=== PATIENT | female | born 1955 | race Caucasian/White ===

== ENCOUNTER 2019-09-23 08:46 | Outpatient (CLI) | payer BC, SELFPAY ==
--- NOTE | ~2019-09-23 | US_ITS ---
US right upper quadrant INDICATION: Right upper quadrant pain. Nausea and vomiting. PROCEDURE: Realtime right upper abdominal ultrasound. COMPARISON: No prior studies for comparison. FINDINGS: The pancreas is normal without focal mass or pancreatic ductal dilation. Liver echotexture is normal without focal mass or intrahepatic biliary dilatation. There is normal directional flow i n the portal vein. There are gallstones. There is mild intrahepatic biliary dilatation. Common bile duct measures mm. N o sonographic Guzman's sign. IMPRESSION: 1: Cholelithiasis with mild intrahepatic biliary dilatation. Consider correlation with nuclear hepato biliary scan if there is concern for cholecystitis. Reviewed, dictated and finalized at location B. [employer]PERVISOR IMPRESSION: 1: Cholelithiasis with mild intrahepatic biliary dilatation. Consider correlati on with nuclear hepatobiliary scan if there is concern for cholecystitis.
== END 2019-09-23 08:47 | disposition home or self-care (01) ==
LOC: ANHIMG 08:49
PROVIDERS: PCP Family Medicine; Visit Provider Physician Assistant
DX: R10.11 Right upper quadrant pain (principal); K80.20 Calculus of gallbladder without cholecystitis without obstruction
CPT/HCPCS: 76705

== ENCOUNTER 2020-03-31 08:20 | Outpatient (CLI) | payer BC, SELFPAY ==
--- NOTE | ~2020-03-31 | MM_ITS ---
EXAMINATION: MM screening [facility] BI w nay HISTORY: Screening TECHNIQUE: Craniocaudal and mediolateral oblique 3-D tomosynthesis images were obtained and synthetic 2-D images were generated. CAD analysis was submitted and interpreted. COMPARISON: 03/30/2018 BREAST PARENCHYMAL COMPOSITION: There are scattered areas of fibroglandular density. FINDINGS: There is no evidence of suspicious mass, calcification, or architectural distortion to sugg est malignancy in either breast. There has been no suspicious interval change. IMPRESSION: 1. No mammographic evidence of malignancy. 2. Recommend routine screening mammography in one year. BI-RADS Category 1: Negative Reviewed, dictated and finalized at location A.
--- NOTE | ~2020-03-31 | CT_ITS ---
EXAMINATION: CT lung screening DATE: 03/31/2020 09:06 INDICATION: Personal history of nicotine dependence, prior smoker with 30 pack year history TECHNIQUE: Computed tomography (CT) of the chest was performed without intravenous contrast. The dose -length product (DLP) was 63.00 mGy-cm. Automated exposure control and iterative reconstruction techn ique were employed. COMPARISON: None FINDINGS: There is a 3 mm nodule of the left lower lobe on image 60. Mild emphysema is noted. The taya gs are free of focal airspace opacities. There is no pleural effusion or pneumothorax. No pathologica lly enlarged thoracic lymph nodes are identified. The heart size is normal. There is moderate to steven re thoracic spondylosis. IMPRESSION: 1. Lung-RADS category 2: Benign appearance or behavior. Continue annual screening with noncontrast lo w-dose chest CT in 12 months. Reviewed, dictated and finalized at location B. IMPRESSION: 1. Lung-RADS category 2: Benign appearance or behavior. Continue annual screeni ng with noncontrast low-dose chest CT in 12 months.
== END 2020-03-31 08:21 | disposition home or self-care (01) ==
LOC: ANHIMG 08:21
PROVIDERS: PCP Family Medicine; Visit Provider Physician Assistant
DX: Z12.31 Encounter for screening mammogram for malignant neoplasm of breast (principal); Z12.2 Encounter for screening for malignant neoplasm of respiratory organs; Z87.891 Personal history of nicotine dependence
CPT/HCPCS: 77063; 77067; G0297

== ENCOUNTER 2021-04-02 09:57 | Outpatient (CLI) | payer MEDICARE, SELFPAY ==
--- NOTE | ~2021-04-02 | CT_ITS ---
EXAMINATION: CT lung screening DATE: 04/02/2021 10:22 INDICATION: Personal history of nicotine dependence, prior smoker with 45 pack year history TECHNIQUE: Computed tomography (CT) of the chest was performed without intravenous contrast. The dose -length product (DLP) was 74.77 mGy-cm. Automated exposure control and iterative reconstruction techn Cas[place] were employed. COMPARISON: 03/31/2020 FINDINGS: There is mild emphysema. There is a stable 3 mm nodule of the left lower lobe. No new pulmo nary nodules are identified. The lungs are free of acute opacities. There is no pleural effusion or p neumothorax. There is severe thoracic spondylosis. IMPRESSION: 1. Lung-RADS category 2: Benign appearance or behavior. Continue annual screening with noncontrast lo w-dose chest CT in 12 months. Reviewed, dictated and finalized at location B. IMPRESSION: 1. Lung-RADS category 2: Benign appearance or behavior. Continue annual screeni ng with noncontrast low-dose chest CT in 12 months.
== END 2021-04-02 09:58 | disposition home or self-care (01) ==
LOC: ANHIMG 10:00
PROVIDERS: PCP Family Medicine; Visit Provider Physician Assistant
DX: Z12.2 Encounter for screening for malignant neoplasm of respiratory organs (principal); Z87.891 Personal history of nicotine dependence
CPT/HCPCS: 71271

== ENCOUNTER 2021-10-28 15:23 | Outpatient (CLI) | payer MEDICARE, SELFPAY ==
--- NOTE | ~2021-10-28 | MM_ITS ---
EXAMINATION: MM screening [facility] BI w nay HISTORY: Screening TECHNIQUE: Craniocaudal and mediolateral oblique 3-D tomosynthesis images were obtained and synthetic 2-D images were generated. CAD analysis was submitted and interpreted. COMPARISON: Comparison to multiple prior studies sequentially, with oldest reviewed study dated 01/2018. BREAST PARENCHYMAL COMPOSITION: There are scattered areas of fibroglandular density. FINDINGS: There is no evidence of suspicious mass, calcification, or architectural distortion to sugg est malignancy in either breast. There has been no suspicious interval change. IMPRESSION: 1. No mammographic evidence of malignancy. 2. Recommend routine screening mammography in one year. BI-RADS Category 1: Negative Reviewed, dictated and finalized at location A.
== END 2021-10-28 15:24 | disposition home or self-care (01) ==
LOC: ANHIMG 15:25
PROVIDERS: PCP Family Medicine; Visit Provider Physician Assistant
DX: Z12.31 Encounter for screening mammogram for malignant neoplasm of breast (principal)
CPT/HCPCS: 77063; 77067

== ENCOUNTER 2022-01-20 17:02 | Outpatient (CLI) | payer MEDICARE, SELFPAY ==
--- NOTE | ~2022-01-20 | DEXA_ITS ---
Bone Density Report Name: CRUZ BENNETT Age: 66 Sex: Female Ethnicity: White Date of : 1955 Indication: postmenopausal; screening for osteoporosis; height loss; asthma or emphysema; hysterectomy; Referring Provider: NELL REARDON Study: Bone densitometry was performed. Exam Date: January 20, 2022 Accession number: [id number] Bone Density: Region BMD T-score Z-score Classification AP Spine(L1-L4) 1.036 -0.1 1.7 Normal Femoral Neck (Left) 0.634 -1.9 -0.4 Osteopenia Total Hip (Left) 0.736 -1.7 -0.4 Osteopenia World Health Organization criteria for BMD impression classify patients as: Normal (T-score at or above -1.0), Osteopenia (T-score between -1.0 and -2.5), or Osteoporosis (T-score at or below -2.5). 10-year Fracture Risk(1): Major Osteoporotic Fracture 11% Hip Fracture 1.6% Reported Risk Factors: [place] (), Neck BMD=0.634, BMI=27.2 (1) FRAX(R) Version 3.08. Fracture probability calculated for an untreated patient. Fracture probability may be lower if the patient has received treatment. Clinical Information Provided by Patient: Has used the following medications: Vitamin D, Calcium Has the following medical conditions: Asthma or Emphysema, Hysterectomy Patient maximum height was 63 Menopause Age: 50 Does not regularly consume dairy products Drinks caffeinated beverages Onset of menses at age 16 Number of children 1 Impression: The patient has low bone mass, based on the Left Femoral Neck T-score. The patient has an estimated ten-year risk of hip fracture of 1.6% and an estimated ten-year risk of major fracture of 11%, based on the WHO FRAX algorithm. Discussion: BONE DENSITY IS LOW AT ONE OR MORE SKELETAL SITES. This patient's lowest T-score is low at one or more skeletal sites. It meets the World Health Organization's (WHO) criteria for ?low bone mass? (T-score between -1.0 and -2.5). The patient's 10-year risk of fracture as calculated by FRAX is less than the threshold where pharmacological therapy is recommended by the National Osteoporosis Foundation (NOF). However, all treatment decisions require clinical judgment and consideration of individual patient factors, including patient preferences, comorbidities, previous drug use, risk factors not captured in the FRAX model (e.g., frailty, falls, vitamin D deficiency, increased bone turnover, interval significant decline in bone density) and possible under or overestimation of fracture risk by FRAX. The patient should follow a healthful lifestyle (good nutrition with adequate calcium and vitamin D, and appropriate weight-bearing exercise). Follow-Up: Consider repeating this study in 2 to 3 years to reassess this patient's status, or sooner if there is some new clinical indication. Reported by: PAYTON on 01/20/2022 5:19:00 PM.
== END 2022-01-20 17:03 | disposition home or self-care (01) ==
PROVIDERS: PCP Family Medicine; Visit Provider Physician Assistant
DX: Z78.0 Asymptomatic menopausal state (principal)
CPT/HCPCS: 77080

== ENCOUNTER 2022-04-04 13:22 | Outpatient (CLI) | payer MEDICARE, SELFPAY ==
--- NOTE | ~2022-04-04 | CT_ITS ---
EXAMINATION:CT lung screening DATE: 04/04/2022 13:38 INDICATION: Tobacco use. Smoker who quit 4 years ago with 45 pack year history. TECHNIQUE: Computed tomography (CT) of the chest was performed without intravenous contrast. Automate d exposure control and iterative reconstruction technique were employed. The dose-length product (DLP ) was 66.76 mGy-cm. COMPARISON: Chest CT 04/02/2021 FINDINGS: There is mild emphysema. There is mild atelectasis bilaterally. Again seen is a 3 mm nodule in left lower lobe. There is mild scarring at the lung apices. No pleural effusion. The heart size i s normal. No pericardial effusion. There is fat stranding in right axilla which may be inflammation o r edema. There is severe cervical and thoracic spondylosis. IMPRESSION: 1. Lung-RADS category 2: Benign appearance or behavior. Continue annual screening with noncontrast lo w-dose chest CT in 12 months. Reviewed, dictated and finalized at location A. IMPRESSION: 1. Lung-RADS category 2: Benign appearance or behavior. Continue annual screeni ng with noncontrast low-dose chest CT in 12 months.
== END 2022-04-04 13:23 | disposition home or self-care (01) ==
PROVIDERS: PCP Family Medicine; Visit Provider Physician Assistant
DX: Z12.2 Encounter for screening for malignant neoplasm of respiratory organs (principal); Z87.891 Personal history of nicotine dependence
CPT/HCPCS: 71271

== ENCOUNTER 2022-10-20 00:11 | Day surgery (SDC) | payer MEDICARE, SELFPAY ==
[2022-10-10 13:57] VITALS: BMI 24.5
--- NOTE | 2022-10-19 14:04 | PM.HPGS ---
History of Present Illness History of Present Illness Consent: Risks, benefits, and alternatives have been discussed and questions answered. Patient agrees to proceed with procedure. Chief complaint: neoplasm screening Narrative: Daija Reed is a 66 year old female referred for colon cancer screening. Her last colonoscopy was 14 years ago. she recently performed a Cologuard test that was positive. Review of Systems Review of Systems: All systems reviewed & are unremarkable except as noted in HPI and below PMFSH Past Medical History Medical History COPD (chronic obstructive pulmonary disease) Essential hypertension Osteoarthritis RUQ abdominal pain Surgical History Surgical History History of History of hysterectomy Hx of removal of cyst removed from ovary in her 20s S/P total hip arthroplasty Right Family History Family History Sibling Family history of multiple sclerosis Father Hypertension Family history of cardiovascular disease Grandparent Tuberculosis Diabetes mellitus Social History Social History Social History: Smoking packs per day: 1.5 Smoking cigarettes per day: 30.0 Years smoked: 30 Smoking pack-years: 45.00 Smoking status: Former smoker Tobacco type: cigarettes Second hand tobacco smoke exposure: Yes Smoking end date: 07/24/17 Alcohol intake: never Substance use: never Substance use type: does not use Living arrangements: alone Occupation/Education: occupation Gender identity (if verbalized by the patient): Female Sexual Orientation (if Verbalized by the Patient): Straight or Heterosexual Spiritual care concerns: No Meds Home Medications and Allergies Home Medications Medication Instructions Recorded Confirmed Type albuterol sulfate 90 mcg/actuation 1 inh inhalation Q4H PRN shortness 09/07/22 10/20/22 Rx aerosol inhaler of breath or wheezing #8.5 grams lisinopril 10 mg tablet 10 mg PO DAILY #90 tabs 09/07/22 10/20/22 Rx Allergies Allergy/AdvReac Type Severity Reaction Status Date / Time codeine Allergy Mild N/V Verified 10/20/22 06:33 amoxicillin Allergy Unknown Vomiting Verified 10/20/22 06:33 Exam Const: General: alert Orientation/consciousness: patient oriented x3 Resp: Auscultation: clear to auscultation bilaterally Cardio: Rhythm: regular rhythm GI: GI Palp: Yes Soft to palpation and No Tenderness to palpation present (GI) Neuro: General: patient oriented x3 Assessment and Plan Assessment and plan (1) Screening for colon cancer: Code(s): Z12.11 - Encounter for screening for malignant neoplasm of colon Status: Acute Assessment and Plan: Colonoscopy with possible biopsy or polypectomy or cautery or injection of substances.
[2022-10-20 06:34] VITALS: BP 121/67; PULSE 90; RESP 16; TEMP 36.2; O2SAT 96
[2022-10-20] MEDS: LACTATED RINGERS 1,000 ML 150 ML IV CONT (06:39)
--- NOTE | 2022-10-20 07:16 | WPDANESEPPF ---
Anes - Initial Pre Proc Eval Procedure: Operation Date: 10/20/22 08:00 Proposed Procedures p Screening Colonoscopy - Homero Quinonez MD Date/Time: 10/20/22 07:16 Surgeon: Homero Quinonez MD Pre Op Diagnosis: neoplasm screening Patient Data Age: 66 Gender: F Height: 1.55 m Weight: 56.9 kg Last Vital Signs Temp 36.2 C L 10/20/22 06:34 Pulse 90 10/20/22 06:34 Resp 16 10/20/22 06:34 BP 121/67 10/20/22 06:34 Pulse Ox 96 10/20/22 06:34 O2 Del Method Room Air 10/20/22 06:34 Allergies Allergy/AdvReac Type Severity Reaction Status Date / Time codeine Allergy Mild N/V Verified 10/20/22 06:33 amoxicillin Allergy Unknown Vomiting Verified 10/20/22 06:33 Home Medications Medication Instructions Recorded Confirmed Type albuterol sulfate 90 mcg/actuation 1 inh inhalation Q4H PRN shortness 09/07/22 10/20/22 Rx aerosol inhaler of breath or wheezing #8.5 grams lisinopril 10 mg tablet 10 mg PO DAILY #90 tabs 09/07/22 10/20/22 Rx Patient hx anesthesia problems: none Family hx anesthesia problems: none Results Review: All pre-operative results and documents have been reviewed as part of the pre-operative evaluation. [facility] Past Medical History Medical History COPD (chronic obstructive pulmonary disease) Essential hypertension Osteoarthritis RUQ abdominal pain Surgical History Surgical History History of History of hysterectomy Hx of removal of cyst removed from ovary in her 20s S/P total hip arthroplasty Right Family History Family History Sibling Family history of multiple sclerosis Father Hypertension Family history of cardiovascular disease Grandparent Tuberculosis Diabetes mellitus Social History Social History Social History: Smoking packs per day: 1.5 Smoking cigarettes per day: 30.0 Years smoked: 30 Smoking pack-years: 45.00 Smoking status: Former smoker Tobacco type: cigarettes Second hand tobacco smoke exposure: Yes Smoking end date: 07/24/17 Alcohol intake: never Substance use: never Substance use type: does not use Living arrangements: alone Occupation/Education: occupation Gender identity (if verbalized by the patient): Female Sexual Orientation (if Verbalized by the Patient): Straight or Heterosexual Spiritual care concerns: No Anes - Eval Final PreProcedure Day of Procedure 10/20/22 07:16 Patient weight: normal Heart: regular rate and rhythm Lungs: clear to auscultation Airway: Mallampati scale class II Neurological: alert and oriented Last oral intake: >/= 8 hours ASA classification: III Emergent: no Anesthetic plan: proceed Anesthesia type and monitoring: general GIVS and standard monitoring Results Review: All pre-operative results and documents have been reviewed as part of the pre-operative evaluation. Informed Consent: The patient's anesthetic plan and its attendant risks and benefits were discussed with the patient/family/POA. Questions were solicited and answers provided to the satisfaction of the patient/family/POA.
[2022-10-20 08:17] VITALS: BP 110/75; PULSE 80; RESP 20; O2SAT 100
[2022-10-20 08:27] VITALS: BP 117/75; PULSE 74; RESP 18; O2SAT 99
[2022-10-20 08:37] VITALS: BP 115/77; PULSE 72; RESP 20; O2SAT 99
== END 2022-10-20 08:42 | disposition home or self-care (01) ==
PROVIDERS: PCP Family Medicine; Visit Provider Internal Medicine Gastroenterology
PROC: 0DJD8ZZ Inspection of Lower Intestinal Tract, Via Natural or Artificial Opening Endoscopic (ICD-10-PCS; CPT 45378; principal; 2022-10-20 08:00)
DX: Z12.11 Encounter for screening for malignant neoplasm of colon (principal); D12.5 Benign neoplasm of sigmoid colon; K57.30 Diverticulosis of large intestine without perforation or abscess without bleeding; R19.5 Other fecal abnormalities; J44.9 Chronic obstructive pulmonary disease, unspecified; I10 Essential (primary) hypertension; Z79.51 Long term (current) use of inhaled steroids; Z87.891 Personal history of nicotine dependence
CPT/HCPCS: 45385; 88305; J2704; J7120

== ENCOUNTER 2023-02-20 15:22 | Outpatient (CLI) | payer MEDICARE, SELFPAY ==
--- NOTE | ~2023-02-20 | MM_ITS ---
EXAMINATION: MM screening kurt BI w nay HISTORY: Screening mammogram TECHNIQUE: Craniocaudal and mediolateral oblique 3-D tomosynthesis images were obtained and synthetic 2-D images were generated. CAD analysis was submitted and interpreted. COMPARISON: October 28, 2021, March 31, 2020, March 30, 2018 bilateral screening mammogram examina tions BREAST PARENCHYMAL COMPOSITION: There are scattered areas of fibroglandular density. FINDINGS: Stable benign-appearing posterior upper outer quadrant lymph nodes. There is no evidence of suspicious mass, calcification, or architectural distortion to suggest malignancy in either breast. There has been no suspicious interval change. IMPRESSION: 1. No mammographic evidence of malignancy. 2. Recommend routine screening mammography in one year. BI-RADS Category 2: Benign finding(s). Reviewed, dictated and finalized at location A.
== END 2023-02-20 15:23 | disposition home or self-care (01) ==
LOC: ANHIMG 15:27
PROVIDERS: PCP Family Medicine; Visit Provider Physician Assistant
DX: Z12.31 Encounter for screening mammogram for malignant neoplasm of breast (principal)
CPT/HCPCS: 77063; 77067

== ENCOUNTER 2023-04-08 09:56 | Outpatient (CLI) | payer MEDICARE, SELFPAY ==
--- NOTE | ~2023-04-08 | CT_ITS ---
CT Scan of the Chest without Contrast: Clinical Indication: Lung cancer screening, personal history of nicotine dependence Technique: Contiguous sections were acquired throughout the chest without intravenous contrast. Dose reduction technique was used on this scan by utilizing automated exposure control and iterative recon struction technique. The dose-length product (DLP) was 59.57 mGy-cm. COMPARISON: 04/04/2022, 04/02/2021 Findings: There is no evidence of any significant mediastinal, hilar or axillary lymphadenopathy. There are ath erosclerotic calcifications of the aorta. There is no evidence of pleural or pericardial effusion. Stable 3 mm left lower lobe pulmonary nodule noted. Images through the upper abdomen reveal no abnormalities. There is multilevel degenerative disc narro wing of the thoracic spine. Impression: Lung RADS 2: Benign appearance. 12 month follow-up screening CT advised. Reviewed, dictated and finalized at [facility]. Impression: Lung RADS 2: Benign appearance. 12 month follow-up screening CT advised.
== END 2023-04-08 09:57 | disposition home or self-care (01) ==
PROVIDERS: PCP Family Medicine; Visit Provider Physician Assistant
DX: Z12.2 Encounter for screening for malignant neoplasm of respiratory organs (principal); Z87.891 Personal history of nicotine dependence
CPT/HCPCS: 71271

== ENCOUNTER 2023-12-12 07:52 | Emergency (ER) | payer MEDICARE, SELFPAY ==
[2023-12-12] VITALS (7 sets, daily range): BP systolic 118–165; BP diastolic 73–109; PULSE 91–119; RESP 18–20; TEMP 37.2; O2SAT 93–98
--- NOTE | ~2023-12-12 | CT_ITS ---
Non-contrast Head CT History: Status post fall Technique: Axial non-contrast imaging of the brain was performed. Dose reduction technique was used on this scan by utilizing automated exposure control and iterative reconstruction technique. The dose -length product (DLP) was 605.33 mGy-cm. Findings: There is no evidence of intracranial hemorrhage, mass lesion, or acute infarct. Brain par enchyma appears normal. The ventricles and subarachnoid spaces are normal in size. The calvarium ap pears normal. The visualized paranasal sinuses and mastoid air cells are clear. Impression: No significant abnormality seen. Reviewed, dictated and finalized at location . Impression: No significant abnormality seen.
--- NOTE | ~2023-12-12 | CT_ITS ---
Noncontrast CT scan of the cervical spine Technique: Multiple contiguous axial [address] images of the cervical spine were obtained and rec onstructed in 2D sagittal and coronal planes on the acquisition scanner. Dose reduction technique was used on this scan by utilizing automated exposure control, adjustment of the mA and/or kV according to patient size. The dose-length product (DLP) was 205.66 mGy-cm. Clinical History: Pain Findings: No acute fracture seen. There is 3 mm anterolisthesis of C4 over C5. There is advanced dege nerative disc narrowing at C5-C6 and C6-C7. There is scattered facet joint degenerative changes. Prob able mild bilateral neural foraminal narrowing at C4-C5. There is left neural foraminal narrowing C5- C6. No prevertebral soft tissue swelling. Impression: No fracture. 3 mm anterolisthesis of C4 over C5. Degenerative change, as detailed above. Reviewed, dictated and finalized at [facility]. Impression: No fracture. 3 mm anterolisthesis of C4 over C5. Degenerative change, as detailed above.
--- NOTE | ~2023-12-12 | CT_ITS ---
EXAMINATION: CTA chest PE protocol DATE: 12/12/2023 09:52 INDICATION: Dizziness, tachycardia. Fall. TECHNIQUE: Computed tomography angiography (CTA) of the chest was performed with 100 mL Omnipaque-350 intravenous contrast timed to evaluate the pulmonary arteries. Coronal maximum intensity projection 3D-reconstructions were created by the technologist. Automated exposure control and iterative reconst ruction technique were employed. Exam dose: 186.00 mGy-cm total exam DLP. COMPARISON: 04/08/2023 CT lung screening FINDINGS: There is moderate contrast opacification of pulmonary arteries and no evidence of pulmonary embolism. There is thoracic aortic calcification but no thoracic aortic aneurysm or dissection. No hilar or mediastinal mass lesion or lymphadenopathy. Normal heart size. No pericardial or pleural effusion. Mild bilateral lower lobe dependent atelectasis. There is mild emphysematous change of the lungs. Normal morphology of the adrenal glands. Included upper abdominal structures are unremarkable. Severe degenerative disc disease at C5-6 and C6-7. Multilevel prominent degenerative disc disease of the thoracic and included upper lumbar spine. Anterolateral right third rib fracture may be recent. Possible recent angulated very anterior right f ourth and seventh rib fractures. Recommend clinical correlation with point tenderness at these locati ons. IMPRESSION: No evidence of pulmonary embolism Mild emphysematous changes Bilateral dependent lower lobe atelectasis Cannot exclude recent right rib fractures; no pneumothorax or pleural effusion Reviewed, dictated and finalized at Location A. Reviewed, dictated and finalized at location B.
--- NOTE | 2023-12-12 08:02 | ECG_ITS ---
SEE SCANNED COPY FOR CONFIRMED REPORT MTDD
--- NOTE | 2023-12-12 08:11 | ED.SYNCOPE ---
HPI - Syncope General Chief Complaint: Altered Mental Status Stated Complaint: unconscious @ bike trail Time Seen by Provider: 12/12/23 08:02 History of Present Illness HPI narrative: Patient who has intermittent episodes of vertigo presents here after she had another episode of vertigo, got so dizzy that she actually fell and that was last thing she remembers. Denies any concerns or complaints right now other than a mild headache. Related Data Home Medications Medication Instructions Recorded Confirmed fluticasone fur. 100 mcg-umeclid 1 inh inhalation DAILY 11/02/23 11/02/23 62.5 mcg-vilant 25 mcg inhalat.powder (Trelegy Ellipta) Allergies Allergy/AdvReac Type Severity Reaction Status Date / Time codeine Allergy Mild N/V Verified 12/12/23 07:58 amoxicillin Allergy Unknown Vomiting Verified 12/12/23 07:58 Review of Systems Review of Systems: All systems reviewed & are unremarkable except as noted in HPI and below PMFSH Past Medical History Medical History COPD (chronic obstructive pulmonary disease) Essential hypertension History of colon polyps Osteoarthritis RUQ abdominal pain Surgical History Surgical History History of History of hysterectomy Hx of removal of cyst removed from ovary in her 20s S/P total hip arthroplasty Right Family History Family History Sibling Family history of multiple sclerosis Father Hypertension Family history of cardiovascular disease Grandparent Tuberculosis Diabetes mellitus Social History Social History Social History: Smoking packs per day: 1.5 Smoking cigarettes per day: 30.0 Years smoked: 30 Smoking pack-years: 45.00 Smoking status: Former smoker Tobacco type: cigarettes Second hand tobacco smoke exposure: Yes Smoking end date: 07/24/17 Alcohol intake: never Substance use: never Substance use type: does not use Living arrangements: alone Occupation/Education: occupation Gender identity (if verbalized by the patient): Female Sexual Orientation (if Verbalized by the Patient): Straight or Heterosexual Spiritual care concerns: No Exam Narrative: EXAMINATION OF ORGAN SYSTEMS/BODY AREAS: Constitutional: Vital signs per nursing GENERAL:[No acute distress, non-toxic appearing.] HEAD: Normal with no signs of head trauma. EYES: EOMI, conjunctiva normal ENT: Hearing grossly intact LUNGS: Nonlabored breathing. HEART: [Regular rate and rhythm] ABD: [Soft], [nontender to palpation] EXT: Normal range of motion SKIN: [No rashes or lesions.] NEURO: [Alert and oriented x 3. No gross focal sensory or strength deficits.] Speaking with clear speech, face is symmetric. PSYCH: Normal affect Course Vital Signs Vital signs: Vital Signs Temperature 99 F 12/12/23 07:51 Pulse Rate 119 H 12/12/23 07:51 Respiratory Rate 18 12/12/23 07:51 Blood Pressure 165/109 H 12/12/23 07:51 Pulse Oximetry 94 12/12/23 07:51 Oxygen Delivery Room Air 12/12/23 07:51 Temperature 99 F 12/12/23 07:51 Pulse Rate 93 12/12/23 10:39 Respiratory Rate 20 12/12/23 10:39 Blood Pressure 122/79 12/12/23 10:39 Pulse Oximetry 96 12/12/23 10:39 Oxygen Delivery Room Air 12/12/23 08:04 MDM - Syncope MDM Narrative Medical decision making narrative: Patient presents after having episode of loss of consciousness, she states that she had felt severe vertigo, where she felt like she was on a ship and everything moving around her, got very nauseous, and then try to move to the grass so she would have a gentle fall but woke up to EMS. She has had episodes like this in the past and she generally tries to move son were softer and has never actually hit her head this lua
[2023-12-12 08:18] LABS: Basophils Absolute Auto 0.1 K/mm3 (0.0-0.1); Basophils Percent Auto 1.4 % (0.2-1.2); Eosinophils Absolute Auto 0.5 K/mm3 (0-0.3); Eosinophils Percent Auto 6.5 % (0-4.4); Hematocrit 45.6 % (37.0-47.0); Hemoglobin 14.6 g/dL (12.0-15.0); Immature Granulocyte Absolute 0.06 K/mm3 (0.00-0.031); Immature Granulocyte Percent A 0.7 % (0-0.5); Lymphocytes Absolute Auto 2.89 K/mm3 (0.9-3.2); Lymphocytes Percent Auto 34.5 % (18.3-44.2); Mean Corpuscular Hemoglobin 29.1 pg (26-34); Mean Corpuscular Volume 90.8 fl (80-100); Mean Platelet Volume 8.8 fl (7.4-10.4); Monocytes Absolute Auto 0.6 K/mm3 (0.1-0.6); Monocytes Percent Auto 7.2 % (2.6-8.5); Neutrophils Absolute Auto 4.2 K/mm3 (1.3-6.7); Neutrophils Percent Auto 49.7 % (45.5-73.1); Platelet Count Result 501 k/mm3 (150-375); Red Blood Count 5.02 M/mm3 (4.2-5.4); Red Cell Distribution Width 14.2 % (11.5-14.5); White Blood Count 8.4 K/mm3 (4.5-10.0)
[2023-12-12 08:25] LABS: Alanine Aminotransferase 12 U/L (6-35); Albumin Level 4.5 g/dL (3.5-5.1); Alkaline Phosphatase 95 U/L (38-126); Anion Gap 7 mmol/L (4-12); Aspartate Amino Transferase 22 U/L (14-36); Bilirubin,Total 0.4 mg/dL (0.2-1.3); Blood Urea Nitrogen 18 mg/dL (7-17); Calcium 8.9 mg/dL (8.4-10.2); Carbon Dioxide 22 mmol/L (22-30); Chloride 108 mmol/L (98-107); Estimated CRCL calculation 58 ml/min; Estimated Glomerular Filt Rate > 60; Glucose 117 mg/dL (65-110); Potassium 3.9 mmol/L (3.4-5.0); Sodium 137 mmol/L (137-145)
[2023-12-12 08:35] LABS: Troponin I < 0.012 ng/mL (0.000-0.034)
[2023-12-12 09:29] LABS: D Dimer 0.75 ug/mL (<0.48)
== END 2023-12-12 10:40 | disposition home or self-care (01) ==
PROVIDERS: Emergency Provider Emergency Medicine; PCP Family Medicine
DX: S22.31XA Fracture of one rib, right side, initial encounter for closed fracture (principal); R42 Dizziness and giddiness; S06.0X0A Concussion without loss of consciousness, initial encounter; T14.90XA Injury, unspecified, initial encounter; I10 Essential (primary) hypertension; J44.9 Chronic obstructive pulmonary disease, unspecified; Z87.891 Personal history of nicotine dependence
CPT/HCPCS: 36415; 70450; 71275; 72125; 80053; 84484; 85025; 85380; 93005; 99284; Q9967

== ENCOUNTER 2024-05-27 14:08 | Outpatient (CLI) | payer MEDICARE, SELFPAY ==
--- NOTE | ~2024-05-27 | MM_ITS ---
EXAMINATION: MM screening kurt BI w nay HISTORY: Screening TECHNIQUE: Craniocaudal and mediolateral oblique 3-D tomosynthesis images were obtained and synthetic 2-D images were generated. CAD analysis was submitted and interpreted. COMPARISON: Comparison to multiple prior studies sequentially, with oldest reviewed study dated 01/2018. BREAST PARENCHYMAL COMPOSITION: Not dense: There are scattered areas of fibroglandular density. FINDINGS: There is no evidence of suspicious mass, calcification, or architectural distortion to sugg est malignancy in either breast. There has been no suspicious interval change. IMPRESSION: 1. No mammographic evidence of malignancy. 2. Recommend routine screening mammography in one year. BI-RADS Category 1: Negative Reviewed, dictated and finalized at location B. TREATMENT OFFSIDER
== END 2024-05-27 14:09 | disposition home or self-care (01) ==
LOC: ANHIMG 14:09
PROVIDERS: PCP Family Medicine; Visit Provider Physician Assistant
DX: Z12.31 Encounter for screening mammogram for malignant neoplasm of breast (principal)
CPT/HCPCS: 77063; 77067

== ENCOUNTER 2024-06-21 08:06 | Emergency (ER) | payer OTHER, MEDICARE, SELFPAY ==
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
[2024-06-21 08:09] VITALS: TEMP 36.6
[2024-06-21 08:13] VITALS: BP 166/81; PULSE 89; RESP 16; TEMP 36.6; O2SAT 100
[2024-06-21] MEDS: methocarbamoL 750 MG TABLET 1500 MG PO (08:27)
[2024-06-21] MEDS: ACETAMINOPHEN 500 MG TABLET 1000 MG PO (08:28)
[2024-06-21] MEDS: KETOROLAC 15 MG/ML VIAL (*BKC) IV PUSH (08:28)
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
[2024-06-21 09:34] VITALS: BP 142/80; PULSE 78; RESP 16; TEMP 36.6; O2SAT 98
--- NOTE | 2024-06-21 09:34 | PC.NURSE ---
RT at bedside
== END 2024-06-21 09:36 | disposition left against medical advice (07) ==
PROVIDERS: Emergency Provider Emergency Medicine; PCP Family Medicine
DX: S22.31XA Fracture of one rib, right side, initial encounter for closed fracture (principal); V89.2XXA Person injured in unspecified motor-vehicle accident, traffic, initial encounter; W22.10XA Striking against or struck by unspecified automobile airbag, initial encounter; J44.9 Chronic obstructive pulmonary disease, unspecified; I10 Essential (primary) hypertension; Z87.891 Personal history of nicotine dependence
CPT/HCPCS: 71250; 96374; 99284; A9270; J1885

== ENCOUNTER 2025-01-17 07:41 | Outpatient (CLI) | payer MEDICARE, SELFPAY ==
--- NOTE | ~2025-01-17 | XR_ITS ---
Lumbosacral Spine: AP and lateral views Clinical History: Pain Findings: The normal lordotic curve is maintained. No fracture seen. 10 mm anterolisthesis of L5 over S1 is present. There is severe degenerative disc narrowing at L1-L2, L2-L3, L3-L4, L5-S1. There is m oderate facet arthropathy throughout the lumbar spine. The sacroiliac joints are normally outlined. Impression: 10 mm anterolisthesis of L5 over S1. Moderate to advanced degenerative spondylosis, as above. Reviewed, dictated and finalized at location M. Impression: 10 mm anterolisthesis of L5 over S1. Moderate to advanced degenerative spondylosis, as above.
== END 2025-01-17 07:42 | disposition home or self-care (01) ==
PROVIDERS: PCP Family Medicine; Visit Provider Student in an Organized Health Care Education/Training Program
DX: M47.897 Other spondylosis, lumbosacral region (principal); M43.17 Spondylolisthesis, lumbosacral region
CPT/HCPCS: 72100

== ENCOUNTER 2025-07-04 09:22 | Outpatient (CLI) | payer MEDICARE, SELFPAY ==
--- NOTE | ~2025-07-04 | CT_ITS ---
EXAMINATION:CT lung screening DATE: 07/04/2025 09:46 INDICATION: Screening TECHNIQUE: Computed tomography (CT) of the chest was performed without intravenous contrast. The dose-length product (DLP) was 58.79 mGy-cm. COMPARISON: June 212023 FINDINGS: Moderately severe centrilobular emphysematous changes, mild bibasilar fibrotic appearing changes with no new nodules or masses seen. Heart and great vessels stable. The bones appear intact. Old right first and third rib fractures again noted. No new fracture seen. No acute process seen in the visualized portions of the upper abdomen or extrathoracic soft tissues. IMPRESSION: No new nodules or masses. Lung RAD 2. Correlate with follow-up low- dose lung cancer screening chest CT in 12 months. Reviewed, dictated and finalized at location A. IRON OPERATOR
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
== END 2025-07-04 09:23 | disposition home or self-care (01) ==
PROVIDERS: PCP Family Medicine; Visit Provider Physician Assistant Medical
DX: Z12.2 Encounter for screening for malignant neoplasm of respiratory organs (principal); M16.12 Unilateral primary osteoarthritis, left hip; Z87.891 Personal history of nicotine dependence
CPT/HCPCS: 71271; 73502

== ENCOUNTER 2025-07-11 09:28 | Outpatient (CLI) | payer MEDICARE, SELFPAY ==
--- NOTE | ~2025-07-11 | MM_ITS ---
EXAMINATION: MM screening kurt BI w nay HISTORY: Screening TECHNIQUE: Craniocaudal and mediolateral oblique 3-D tomosynthesis images were obtained and synthetic 2-D images were generated. CAD analysis was submitted and interpreted. COMPARISON: Comparison to multiple prior studies sequentially, with oldest reviewed study dated 03/30/2018. BREAST PARENCHYMAL COMPOSITION: Not dense: There are scattered areas of fibroglandular density. FINDINGS: There is no evidence of suspicious mass, calcification, or architectural distortion to suggest malignancy in either breast. There has been no suspicious interval change. IMPRESSION: 1. No mammographic evidence of malignancy. 2. Recommend routine screening mammography in one year. BI-RADS Category 1: Negative Reviewed, dictated and finalized at location O. CTOR OF INSTITUTIONAL RESEARCH
--- OUTSIDE RECORDS SUMMARY | 2025-07-11 09:47 | XMS_ITS | Clinical Summary ---
Author Organization [facility] Address [address] [address] Care Team Providers Care Food Safety Scientist Name Role Phone Blaine Cross MD Primary Care Provider Social History Tobacco Use Types Packs/Day Years Used Date Smoking Tobacco: Never Assessed Personal Safety Answer Date Recorded Getting School Help Needed Not on file 08/21 Comments Unknown Sex and Gender Information Value Date Recorded Sex Assigned at Not on file Legal Sex Female 10:53 AM CDT Gender Identity Not on file Sexual Orientation Not on file Plan of Treatment Health Maintenance Due Date Last Done Comments Breast Cancer Screening-Mammogram 1955 Depression Screening 1955 Fall Risk Assessment 1955 Hepatitis C Screening 1955 Osteoporosis Screening-Bone Density Scan 1955 DTaP/Tdap/Td Vaccine (1 - Tdap) 12/02/1966 Hepatitis B Screening 12/02/1973 Pneumococcal vaccine 65+ (1 of 2 - PCV) 12/02/1974 Zoster Vaccine (1 of 2) 12/02/2005 Well Visit 65+ 12/02/2020 Covid-19 Vaccine (6 - 2024-2 6 season) 2025 06/22/2023, 04/02/2022, 05/15/2021, Additional history exists Influenza Vaccine (#1) 2025 06/22/2023, 2021 Colon Cancer Screening-Colonoscopy 06/29/20332022 Procedures Procedure Name Priority Date/Time Associated Diagnosis Comments CT VIRTUAL COLONOSCOPY DIAGNOSTIC WO CONTRAST Schedule Routine, Read Routine (OP Routine) 06/29/2023 8:25 AM RESTAURANT CULINARY MANAGER Encounter for screening for malignant neoplasm of colon Other fecal abnormalities from Last 3 Months or Most Recently Relevant to Health Maintenance Results * CT Colonoscopy Diagnostic WO Contrast (06/29/2023 8:25 AM RESTAURANT CULINARY MANAGER) Anatomical Region Laterality Modality Body N/A Computed Tomogra phy 06/29/2023 11:5 5 AM RESTAURANT CULINARY MANAGER Impressions 06/29/2023 11:57 AM RESTAURANT CULINARY MANAGER Colon: C1: Normal colon or benign lesion, continue routine screening. Extracolonic Findings: E2: Clinically unimportant finding, no workup indicated. Dictated by: Blaine Orr MD The radiology attending physician has personally reviewed this study, and had reviewed and/or edited this written report and agrees with it. Electronically signed by: Owen Dejesus M.D. Narrative 06/29/2023 11:57 AM RESTAURANT CULINARY MANAGER EXAMINATION: CT colonography without intravenous contrast HISTORY: CT colonoscopy, screening TECHNIQUE: Transaxial computed tomographic images through the abdomen and pelvis were obtained without intravenous contrast after insufflation of the colon with CO2 through a rectal catheter. Images were obtained in the supine and right lateral decubitus positions. COMPARISON: None FINDINGS: The following findings are reported according to the CT Colonography Reporting and Data System (C-RADS) from Radiology 2005; 236:3-9. Colonic preparation and distention: adequate. All six segments of the colon are adequately distended on both supine and right lateral decubitus views. Colonic findings: There is mild colonic diverticulosis No polyps greater than 5 mm are detected. Extracolonic findings: This CT examination is performed without intravenous contrast and with a low dose technique optimized for evaluation of the colon. Within the limits of this technique, no significant extracolonic findings are present. Dependent atelectasis without suspicious pulmonary nodule. Bronchial wall thickening. Calcified moderate aortoiliac atherosclerosis. Right total hip arthroplasty with streak artifact limiting evaluation of adjacent structures. Thoracic and lumbar spondylosis with or associated sclerosis. Grade 1 anterolisthesis of L5 on S1. Procedure Note Owen Dejesus MD - 06/29/2023 EXAMINATION: CT colonography without intravenous contrast HISTORY: CT colonoscopy, screening TECHNIQUE: Transaxial computed tomographic images through the abdomen and pelvis were obtained without intravenous contrast after insufflation of the colon with CO2 through a rectal catheter. Images were obtained in the supine and right lateral decubitus positions. COMPARISON: None FINDINGS: The following findings are reported according to the CT Colonography Reporting and Data System (C-RADS) from Radiology 2005; 236:3-9. Colonic preparation and distention: adequate. All six segments of the colon are adequately distended on both supine and right lateral decubitus views. Colonic findings: There is mild colonic diverticulosis No polyps greater than 5 mm are detected. Extracolonic findings: This CT examination is performed without intravenous contrast and with a low dose technique optimized for evaluation of the colon. Within the limits of this technique, no significant extracolonic findings are present. Dependent atelectasis without suspicious pulmonary nodule. Bronchial wall thickening. Calcified moderate aortoiliac atherosclerosis. Right total hip arthroplasty with streak artifact limiting evaluation of adjacent structures. Thoracic and lumbar spondylosis with or associated sclerosis. Grade 1 anterolisthesis of L5 on S1. IMPRESSION: Colon: C1: Normal colon or benign lesion, continue routine screening. Extracolonic Findings: E2: Clinically unimportant finding, no workup indicated. Dictated by: Blaine Orr MD The radiology attending physician has personally reviewed this study, and had reviewed and/or edited this written report and agrees with it. Electronically signed by: Owen Dejesus M.D. Homero Quinonez MD IMG CT PROCEDURES Final Resul t from Last 3 Months or Most Recently Relevant to Health Maintenance Insurance MEDICARE AETNA SENIOR SUPPLEMENT MEDICARE AETNA SENIOR SUPPLEMENT Care Teams Food Safety Scientist Relationship Specialty Start Date End Date Blaine Cross MD [address] [place] [address] PCP - General Family Medicine 06/20/23
--- OUTSIDE RECORDS SUMMARY | 2025-07-11 09:47 | XMS_ITS | Clinical Summary ---
Author Organization [facility] [facility] Address [address] [place] [address] Care Team Providers Care Funeral Planner Name Role Phone Rafa Paez MD Primary Care Provider [phone] Source Comments [facility],non-owned Affiliates and Associated Physician Practices is amultiple site organization consisting of ambulatory clinics and hospital sitesin [place], [place]. This disclosure is being madepursuant to the Care Everywhere program and may not contain all information available regarding this patient. Last updated 18.[facility] Allergies Active Allergy Reactions Criticality Noted Date Comments Augmentin Nausea and/or Vomiting 10/30/2018 Medications * Be aware that medications may not be up to date on this document. Alwaysverify current medications with the patient. fluticasone propionate (FLONASE) 50 MCG/ACT nasal sprayIndications:R hinitis medicamentosa [place] 2 sprays into each nostril once daily 1 bottles 9 Active Family History Medical History Relation Name Comments Multiple Sclerosis Brother CAD (Coronary Artery Disease) Father COPD - Chronic Obstructive Pulmonary Disease Mother Cancer - Breast Sister Relation Name Status Comments Brother Father Mother Sister Social History Tobacco Use Types Packs/Day Years Used Date Smoking Tobacco: Former Cigarettes 25 1 99 - 2015 Smokeless Tobacco: Never Comments No Sex and Gender Information Value Date Recorded Sex Assigned at Not on file Legal Sex Female 7:25 PM FAMILY SERVICE AIDE Gender Identity Not on file Sexual Orientation Not on file Last Filed Vital Signs Vital Sign Reading Time Taken Comments Blood Pressure 152/90 10/28/2018 11:44 AM CDT Pulse 86 10/28/2018 11:25 AM CDT Temperature 37.1 C (98.7 F) 10/28/2018 11:25 AM CDT Respiratory Rate 20 10/28/2018 11:25 AM CDT Oxygen Saturation 96% 10/28/2018 11:44 AM CDT Inhaled Oxygen Concentration - - Weight 67.1 kg (148 lb) 10/28/2018 11:25 AM CDT Height 160 cm (5' 3) 10/28/2018 11:25 AM CDT Body Mass Index 26.22 10/28/2018 11:25 AM CDT Plan of Treatment Health Maintenance Due Date Last Done Comments BONE DENSITY TESTING 1955 COLOGUARD (AGES 45-75) - COL ON CA SCREENING 1955 COLON MONITORING 1955 COLONOSCOPY - COLON CA SCREENING 1955 CT COLONOGRAPHY - COLON CA SCREENING 1955 Colorectal Cancer Screening 1955 FIT - COLON CA SCREENING 1955 FLEX SIG - COLON CA SCREENING 1955 LIPID TESTING 1955 MAMMOGRAM 1955 HEPATITIS C SCREENING 11/28/1973 DTAP/TDAP/TD VACCINES (1 - Tdap) 12/02/1974 PNEUMOCOCCAL VACCINE 50+ (1 of 1 - PCV) 12/02/2005 ZOSTER VACCINE (1 of 2) 12/02/2005 SCREENING FOR DIABETES 10/28/2018 DEPRESSION SCREENING 07/24/2024 COVID-19 VACCINE (1 - 2024-2 6 season) 2025 INFLUENZA VACCINE (#1) 2025 Respiratory Syncytial Virus (RSV) Vaccine Pt: or over 60 yrs (1 - 1-dose 75+ series) 12/02/2030 HEPATITIS B VACCINE Aged Out No longe r eligible based on patient's age to complete this topic HIB VACCINE Aged Out No longer eligi ble based on patient's age to complete this topic HPV VACCINE Aged Out No longer eligi ble based on patient's age to complete this topic MENINGOCOCCAL (Group B) VACC INE SHARED DECISION-MAKING Aged Out No longer eligibl e based on patient's age to complete this topic MENINGOCOCCAL GROUPS A/C/Y/W VACCINE Aged Out No longer eligible b ased on patient's age to complete this topic Insurance [facility] MEDICARE AETNA Care Teams Funeral Planner Relationship Specialty Start Date End Date Rafa Paez MD [address] [place] [address] PCP - General 10/9/09
== END 2025-07-11 09:29 | disposition home or self-care (01) ==
LOC: ANHFOHIMG 09:30
PROVIDERS: PCP Family Medicine; Visit Provider Family Medicine
DX: Z12.31 Encounter for screening mammogram for malignant neoplasm of breast (principal)
CPT/HCPCS: 77063; 77067

== ENCOUNTER 2025-07-18 09:18 | Outpatient (CLI) | payer MEDICARE, SELFPAY ==
--- OUTSIDE RECORDS SUMMARY | 2025-07-18 09:21 | XMS_ITS | Clinical Summary ---
Author Organization [facility] Address [address] [address] Care Team Providers Care Food And Beverage Server Name Role Phone Blaine Cross MD Primary [...] Read Routine (OP Routine) 06/29/2023 8:25 AM CUSTOMER ACCOUNT MANAGER Encounter for screening for malignant neoplasm of colon Other fecal abnormalities from Last 3 Months or Most Recently Relevant to Health Maintenance Results * CT Colonoscopy Diagnostic WO Contrast (06/29/2023 8:25 AM CUSTOMER ACCOUNT MANAGER) Anatomical Region Laterality Modality Body N/A Computed Tomogra phy 06/29/2023 11:5 5 AM CUSTOMER ACCOUNT MANAGER Impressions 06/29/2023 11:57 AM CUSTOMER ACCOUNT MANAGER Colon: C1: Normal colon or benign lesion, continue routine screening. Extracolonic Findings: E2: Clinically unimportant finding, no workup indicated. Dictated by: Blaine Orr MD The radiology attending physician has personally reviewed this study, and had reviewed and/or edited this written report and agrees with it. Electronically signed by: Owen Dejesus M.D. Narrative 06/29/2023 11:57 AM CUSTOMER ACCOUNT MANAGER EXAMINATION: CT colonography without intravenous contrast [...] MEDICARE AETNA SENIOR SUPPLEMENT Care Teams Food And Beverage Server Relationship Specialty Start Date End Date Blaine Cross MD [address] [facility] [address] [place] [address] PCP - General Family Medicine 06/20/23
--- OUTSIDE RECORDS SUMMARY | 2025-07-18 09:21 | XMS_ITS | Clinical Summary ---
Author Organization [facility] [employer] Address [address] [place] [address] Care Team Providers Care Community Organization Director Name Role Phone Rafa Paez MD Primary Care Provider [phone] Source Comments [facility],non-owned Affiliates and Associated Physician Practices is amultiple site organization consisting of ambulatory clinics and hospital sitesin [place], [place], [place] and [place]. This disclosure is being madepursuant to the Care Everywhere program and may not contain all information available regarding this patient. Last updated 18.[facility] [employer] Allergies Active Allergy Reactions Criticality Noted Date Comments Augmentin Nausea and/or Vomiting 10/30/2018 Medications * Be aware that medications may not be up to date on this document. Alwaysverify current medications with the patient. fluticasone propionate (FLONASE) 50 MCG/ACT nasal sprayIndications:R hinitis medicamentosa [place] 2 sprays into each nostril once daily 1 bottles 9 Active Family History Medical History Relation Name Comments Multiple Sclerosis Brother CAD (Coronary Artery Disease) Father COPD - Chronic Obstructive Pulmonary Disease Mother Cancer - Breast Sister Relation Name Status Comments Brother Father Mother Sister Social History Tobacco Use Types Packs/Day Years Used Date Smoking Tobacco: Former Cigarettes 1 25 1 99 - 2015 Smokeless Tobacco: Never Comments No Sex and Gender Information Value Date Recorded Sex Assigned at Not on file Legal Sex Female 7:25 PM SHUTDOWN PLANNER Gender Identity Not on file Sexual Orientation [...] patient's age to complete this topic Insurance [facility] MEDICARE AETNA Care Teams Community Organization Director Relationship Specialty Start Date End Date Rafa Paez MD [address] [place] [address] PCP - General 10/9/09
--- OUTSIDE RECORDS SUMMARY | 2025-07-18 09:21 | XMS_ITS | Clinical Summary ---
Author Organization [facility] Address [address] [place] [address] Care Team Providers Care Pet Training Instructor Name Role Phone Blaine Cross MD Primary Care Provider [phone] Allergies Active Allergy Reactions Criticality Noted Date Comments Amoxicillin-Pot Clavulanate Nausea and Vomiting 10/30/2018 Medications PROAIR HFA 108 (90 Base) MCG/ACT inhalerIndicat ions:shortness of breath Inhale 2 puffs into the lungs every 4 (four) hours as needed. Indications: shortness of breath 2 9 Active fluticasone propionate 50 MCG/ACT nasal sprayIndicatio ns:allergies 2 sprays by Each Nostril route daily as needed. Indications: allergies 0 9 Active lisinopril 10 MG tabletIndicati ons:blood pressure Take 10 mg by mouth daily. Indications: blood pressure 2 9 Active loratadine 10 MG tabletIndicati ons:allergies Take 10 mg by mouth daily. Indications: allergies 9 Active clindamycin 300 MG capsule Take 2 capsules (600 mg total) by mouth see administration instructions. Take 600 mg one hour before dental work 2 capsule 0 Active Active Problems Problem Noted Date Diagnosed Date S/P total hip arthroplasty 04/30/2019 Primary osteoarthritis of right hip 02/13/2019 Elevated blood pressure read ing without diagnosis of hypertension 05/29/2014 OA (osteoarthritis) of hip HTN (hypertension) COPD (chronic obstructive pulmonary disease) Right knee pain Family History Medical History Relation Comments Multiple Sclerosis Brother Stroke Father Emphysema Mother Cancer Sister Relation Status Comments Brother Father Mother Sister Son Alive Social History Tobacco Use Types Packs/Day Years Used Date Smoking Tobacco: Former Smokeless Tobacco: Never Alcohol Use Standard Drinks/Week Comments No 0 (1 standard drink = 0.6 oz pur e alcohol) AUDIT-C Answer Date Recorded Frequency of Alcohol Consumption Never 02/13/2019 Average Number of Drinks Not on file 019 Frequency of Binge Drinking Not on file 01/22 PHQ-2 Answer Date Recorded PHQ-2 Score - If the patient scores above 3, please move on to questions 3-9 0 04/29/2020 Comments No Sex and Gender Information Value Date Recorded Sex Assigned at Not on file Legal Sex Female 8:36 PM CDT Gender Identity Not on file Sexual Orientation Not on file Last Filed Vital Signs Vital Sign Reading Time Taken Comments Blood Pressure 114/64 04/29/2020 1:12 PM CDT Pulse 83 04/29/2020 1:12 PM CDT Temperature 36.3 C (97.3 F) 04/29/2020 1:12 PM CDT Respiratory Rate 18 05/09/2019 8:46 AM CDT Oxygen Saturation 94% 04/29/2020 1:12 PM CDT Inhaled Oxygen Concentration - - Weight 63.2 kg (139 lb 4.8 oz) 04/29/2020 1:12 P M CDT Height 154.9 cm (5' 1) 04/29/2020 1:12 PM CDT Body Mass Index 26.32 04/29/2020 1:12 PM CDT Plan of Treatment Health Maintenance Due Date Last Done Comments Colorectal Cancer Screening Colonoscopy (10 Years) 1955 Hepatitis C 12/02/1973 DTaP, Tdap and Td Vaccines ( 1 - Tdap) 12/02/1974 Pneumococcal Vaccine: 50+ Ye ars (1 of 2 - PCV) 12/02/1974 Mammogram Screening 1995 Zoster Vaccines (1 of 2) 12/02/2005 RSV Immunization or 60+ Years (1 - Risk 60-74 years 1-dose series) 2015 Dexa Scan (General) 12/02/2020 COVID-19 Vaccine (1 - 2024-2 6 season) 2025 Influenza Adult (#1) 2025 Hepatitis A Vaccines Aged Out No long er eligible based on patient's age to complete this topic Meningococcal B Vaccine Aged Out No l onger eligible based on patient's age to complete this topic Meningococcal Vaccine Aged Out No misty brian eligible based on patient's age to complete this topic RSV Immunizations Under 20 Months Aged Out No longer eligible based on patient's age to complete this topic Medical Devices Implanted Type Area It Project Coordinator Device Identifier Shelf Expiration Date Model / Serial / Lot [place] Gription Acetabular Shell Sector Implanted:Qty: 1 on 04/30/2019 by Camilo Fonseca MD at [facility] Hip Components Right: Hip [employer] [id number] 01/20/2029 1217-32- 052 / / [id number] [place] Altrx Polyethylene Liner Neutral Implanted:Qty: 1 on 04/30/2019 by Camilo Fonseca MD at [facility] Hip Components Right: Hip [employer] 05/23/2023 1221-63- 052 / / [id number] Femoral Stem 07/06 Taper [employer]is Duofix Hip Prosthesis Cementless Implanted:Qty: 1 on 04/30/2019 by Camilo Fonseca MD at [facility] Hip Components Right: Hip [employer] 01/20/2029 1010-11- 030 / / [id number] [place] Cancellous Bone Screw [id number] Implanted:Qty: 1 on 04/30/2019 by Camilo Fonseca MD at [facility] Hip Components Right: Hip [employer] 07/23/2028 1217-20- 500 / / [id number] [place] Cancellous Bone Screw [id number] Implanted:Qty: 1 on 04/30/2019 by Camilo Fonseca MD at [facility] Hip Components Right: Hip [employer] 04/22/2028 1217-- 500 / / [id number] [employer] Delta Ceramic Femoral Head Implanted:Qty: 1 on 04/30/2019 by Camilo Fonseca MD at [facility] [place] Hip Components Right: Hip [employer] 01/21/2024 1365-36- 330 / / [id number] Insurance [facility] Advance Directives Documents on File Type Date Recorded Patient Business And Marketing Teacher Expl anation Advance Directives and Living Will 06/13/2019 11:02 AM 04/29/19 POA FOR HEALTHCARE Advance Directives and Living Will 05/02/2019 9:52 AM POA FOR HEALTH CARE SIGNED 04/29/19 * Full Code (Latest Code Status on File) Date Activated Date Inactivated Comments 04/30/2019 12:06 PM 05/01/2019 12:46 PM Care Teams Pet Training Instructor Relationship Specialty Start Date End Date Blaine Cross MD [address] [place] [address] PCP - General FAMILY PRACTICE 01/30/19
[2025-07-18 10:14] LABS: Influenza A QL RT-PCR Negative (Negative); Influenza B QL RT-PCR Negative (Negative); RSV RNA, RT-PCR Negative (Negative); SARS-CoV-2 RNA PCR Negative (Negative)
== END 2025-07-18 09:19 | disposition home or self-care (01) ==
LOC: ANHLAB 09:19
PROVIDERS: PCP Family Medicine
DX: R50.9 Fever, unspecified (principal); Z20.822 Contact with and (suspected) exposure to COVID-19
CPT/HCPCS: 87637